=== PATIENT | female | born 1995 | race American Indian/Alaskan Native ===

== ENCOUNTER 2016-09-25 15:33 | Emergency (ER) | payer OTHER ==
[2016-09-25] MEDS ORDERED: XYLOCAINE 1%/ EPI 1:100,000 INFILTRATI ONE (18:39)
[2016-09-25] MEDS ORDERED: NORCO 5/325 PO ONE (18:40)
--- NOTE | 2016-09-25 19:28 | Emergency Department Report ---
Entered by TAYLOR MONTANEZ, acting as scribe for DAMAIN MAC PA. - General Chief complaint: Skin/Abscess/Foreign Body Stated complaint: BUTTOCKS PAIN Source: patient Mode of arrival: Ambulatory Limitations: No Limitations - History of Present Illness Initial comments: 21 year old female presents to the ED c/o an abscess on the left inner buttocks that began 5 days ago. Associated symptoms includes radiating pain to her left leg and lower back, but she denies drainage, fever, and chills. Rates pain a 10 out of 10 in severity, which worsens with walking and sitting. Pt states that she took Meloxicam with mild relief. PMHx of childhood asthma. LMP 09/23/2016. NKDA. WHITTAKER complaint: abscess/boil (left side of inner buttock) Onset/Timin -: days(s) Tetanus Up to Date: yes Location: buttocks (left side of inner buttock) Severity: moderate Severity scale (0 -10): 10 Quality: aching, constant Consistency: constant Improves with: immobilization, other (Meloxican with mild relief) Worsens with: palpation, movement (walking and sitting) Associated symptoms: other (pain radiating to left leg and lower back, denies drainage, fever, and chills) - Related Data Previous Rx's Medication Instructions Recorded Last Taken Type HYDROcodone/APAP 5-325 [[place] 1 each PO Q4HR PRN #12 tablet 09/25/16 Unknown Rx 5/325] Sulfamethoxazole/Trimethoprim 1 each PO BID #20 tablet 09/25/16 Unknown Rx [Bactrim DS TAB] Allergies Allergy/AdvReac Type Severity Reaction Status Date / Time No Known Allergies Allergy Unverified 09/25/16 16:48 Abscess Boil HPI - HPI Chief Complaint: Skin/Abscess/Foreign Body Stated Complaint: BUTTOCKS PAIN Duration: 5 Days Location: Lower Extremity (left inner buttock) Severity: Moderate History: Yes Pain (left inner buttock that radiates to left leg and lower back) , No Fever, No Purulent Drainage (left inner buttock), No Numbness, No Foreign Body, No Previous History, No Insect Bite Home Medications: Previous Rx's Medication Instructions Recorded Last Taken Type HYDROcodone/APAP 5-325 [[place] 1 each PO Q4HR PRN #12 tablet 09/25/16 Unknown Rx 5/325] Sulfamethoxazole/Trimethoprim 1 each PO BID #20 tablet 09/25/16 Unknown Rx [Bactrim DS TAB] Allergies/Adverse Reactions: Allergies Allergy/AdvReac Type Severity Reaction Status Date / Time No Known Allergies Allergy Unverified 09/25/16 16:48 ED Review of Systems Comment: All other systems reviewed and negative Constitutional: denies: chills, fever Musculoskeletal: other (left inner buttock pain that radiates to the left leg and lower back) Skin: other (abscess in the left inner buttock, no abscess drainage) ED Past Medical Hx - Past Medical History Hx Asthma: Yes (CHILD) - Surgical History Past Surgical History?: No - Social History Smoking Status: Never Smoker Substance Use Type: None - Medications Home Medications: Home Medications Medication Instructions Recorded Confirmed Last Taken Type HYDROcodone/APAP 5-325 [[place] 1 each PO Q4HR PRN #12 tablet 09/25/16 Unknown Rx 5/325] Sulfamethoxazole/Trimethoprim 1 each PO BID #20 tablet 09/25/16 Unknown Rx [Bactrim DS TAB] ED Physical Exam - General Limitations: No Limitations General appearance: alert, in no apparent distress - Head Head exam: Present: atraumatic, normocephalic - Eye Eye exam: Present: normal appearance, PERRL, EOMI - ENT ENT exam: Present: mucous membranes moist - Neck Neck exam: Present: normal inspection, full ROM - Respiratory Respiratory exam: Present: normal lung sounds bilaterally. Absent: respiratory distress - Cardiovascular Cardiovascular Exam: Present: regular rate - GI/Abdominal GI/Abdominal exam: Present: soft, normal bowel sounds. Absent: distended, tenderness, guarding, rebound, rigid - Rectal Rectal exam: Present: tenderness (around the area of abscess on left inner buttock), other (abscess present on inner buttock) - Extremities Exam Extremities exam: Present: normal inspection, full ROM - Back Exam Back exam: Present: normal inspection, full ROM - Neurological Exam Neurological exam: Present: alert, oriented X3 - Psychiatric Psychiatric exam: Present: normal affect, normal mood - Skin Skin exam: Present: warm, dry, intact, other (abscess present on the inner buttock). Absent: pallor ED Course Vital Signs 09/25/16 16:49 Temperature 98.9 F Pulse Rate 100 H Respiratory 20 Rate Blood Pressure 139/87 O2 Sat by Pulse 100 Oximetry - I & D Left Upper Buttocks Type of Procedure: Simple Site: left inner buttock Blade Size: 11 I & D Procedure: betadine prep, sterile drapes applied, sterile dressing applied , gauze wick placed ED Disposition Clinical Impression: Pilonidal abscess Disposition: DISCHARGED TO HOME OR SELFCARE Is pt being admited?: No Condition: Stable Instructions: Abscess Incision and Drainage (ED) Prescriptions: HYDROcodone/APAP 5-325 [[place] 5/325] 1 each PO Q4HR PRN #12 tablet PRN Reason: Pain Sulfamethoxazole/Trimethoprim [Bactrim DS TAB] 1 each PO BID #20 tablet Referrals: PRIMARY CARE,MD [Primary Care Provider] - 3-5 Days Forms: Work/School Release Form(ED) This documentation as recorded by the TARIK howell JASMINE,accurately reflects the service I personally performed and the decisions made by ,DAMIAN MAC PA.
[2016-09-25 20:00] VITALS: BP 117/81
== END 2016-09-25 19:59 | disposition home or self-care (01) ==
LOC: ED 15:33
DX: L05.01 Pilonidal cyst with abscess (principal)
CPT/HCPCS: 87116; 99282

== ENCOUNTER 2016-09-27 16:11 | Emergency (ER) | payer OTHER ==
--- NOTE | 2016-09-27 19:50 | Emergency Department Report ---
ED Recheck HPI - General Chief Complaint: Recheck/Abnormal Lab/Rx Stated Complaint: FOLLOW UP/REMOVE PACKING/ABSCESS Time Seen by Provider: 09/27/16 19:35 Source: patient, family Mode of arrival: Ambulatory Limitations: No Limitations - History of Present Illness Initial Comments: Patient was here on 09/25/2016 for incision and drainage of abscess to left buttocks. She says she was told to come back in 2 days for reevaluation. Her vital told her to follow up with her primary care physician in 3-5 days per documentation. OPT Received Bactrim and [place] and she says she is still taking. Her abscess was drain and pack in place. She reports that she is having pain 5 out of 10 when she sits down. Denies any fever or chills or nausea or vomiting. MD Complaint: wound re-check Onset/Timin -: days(s) Initial Visit For: abscess Returns Today for: wound recheck Symptoms Since Prior Visit: worsening discharge Context: planned re-check Associated Symptoms: none Treatments Prior to Arrival: heat therapy, Given Antibiotics on, Given Pain Meds on - Related Data Previous Rx's Medication Instructions Recorded Last Taken Type HYDROcodone/APAP 5-325 [[place] 1 each PO Q4HR PRN #12 tablet 09/25/16 Unknown Rx 5/325] Sulfamethoxazole/Trimethoprim 1 each PO BID #20 tablet 09/25/16 Unknown Rx [Bactrim DS TAB] Ibuprofen [Motrin] 600 mg PO Q8H PRN #15 tablet 09/27/16 Unknown Rx Allergies Allergy/AdvReac Type Severity Reaction Status Date / Time No Known Allergies Allergy Verified 09/27/16 16:35 ED Review of Systems ROS: Stated complaint: FOLLOW UP/REMOVE PACKING/ABSCESS Other details as noted in HPI Comment: All other systems reviewed and negative Constitutional: denies: chills, fever Respiratory: no symptoms reported Cardiovascular: denies: chest pain, palpitations, edema, syncope Gastrointestinal: denies: abdominal pain, nausea, vomiting Skin: other (recheck abscess buttocks) Neurological: denies: headache, weakness, numbness, paresthesias, confusion, abnormal gait, vertigo ED Past Medical Hx - Past Medical History Previous Medical History?: Yes Hx Asthma: Yes (CHILD) Additional medical history: Abscess - Surgical History Past Surgical History?: No - Family History Family history: no significant - Social History Smoking Status: Never Smoker Substance Use Type: Alcohol - Medications Home Medications: Home Medications Medication Instructions Recorded Confirmed Last Taken Type HYDROcodone/APAP 5-325 [[place] 1 each PO Q4HR PRN #12 tablet 09/25/16 Unknown Rx 5/325] Sulfamethoxazole/Trimethoprim 1 each PO BID #20 tablet 09/25/16 Unknown Rx [Bactrim DS TAB] Ibuprofen [Motrin] 600 mg PO Q8H PRN #15 tablet 09/27/16 Unknown Rx ED Physical Exam - General Limitations: No Limitations General appearance: alert, in no apparent distress - Head Head exam: Present: atraumatic, normocephalic, normal inspection - Eye Eye exam: Present: normal appearance, PERRL, EOMI. Absent: periorbital swelling , periorbital tenderness Pupils: Present: normal accommodation - Neck Neck exam: Present: normal inspection, full ROM. Absent: tenderness, lymphadenopathy - Respiratory Respiratory exam: Present: normal lung sounds bilaterally. Absent: respiratory distress, chest wall tenderness - Cardiovascular Cardiovascular Exam: Present: regular rate, normal rhythm, normal heart sounds - Extremities Exam Extremities exam: Present: normal inspection, full ROM, normal capillary refill. Absent: tenderness, pedal edema, joint swelling, calf tenderness - Back Exam Back exam: Present: normal inspection, full ROM. Absent: tenderness, CVA tenderness (R), CVA tenderness (L), muscle spasm, paraspinal tenderness, vertebral tenderness, rash noted - Neurological Exam Neurological exam: Present: alert, oriented X3, normal gait - Psychiatric Psychiatric exam: Present: normal affect, normal mood - Skin Skin exam: Present: warm, dry, other (left buttocks abscess with packing still in place.) - Expanded Skin Exam Expanded Type of lesion: Present: abscess (with packing still in place left buttocks) Distribution of rash: other (buttocks) Description of rash: Present: tenderness, erythematous, swelling, discharge ( moderate amount of discharge from area and noted in packing), fluctuant, indurated (still some areas of induration.) ED Course Vital Signs 09/27/16 16:35 Temperature 98.4 F Pulse Rate 84 Respiratory 20 Rate Blood Pressure 115/78 O2 Sat by Pulse 100 Oximetry - Reevaluation(s) Reevaluation #1: 09/27/16 20:34 She is stable throughout ED course ED Recheck MDM - Differential Diagnosis Wound Recheck - Medical Decision Making I discussed the patient that facility to remove the packing due to moderate amount of drainage and I told her that if the packing is removed now in the patient will close up and she still has an area that needs not. I instructed her she needs to apply warm compresses to the area and take sitz baths 3-4 times a day to facilitate drainage. I instructed her that she needs to continue taking her antibiotic as prescribed and also pain medication. Patient is stable she's not having any fever and she is able to tolerate liquids without any problems.She can return to the hospital on Thursday if she she follows instructions with warm compresses and she probably will be ready for packing to be removed. Patient was understanding of discharge instructions and follow-up. Critical care attestation.: If time is entered above; I have spent that time in minutes in the direct care of this critically ill patient, excluding procedure time. ED Disposition Clinical Impression: Encounter for recheck of abscess following incision and drainage Disposition: DISCHARGED TO HOME OR SELFCARE Is pt being admited?: No Does the pt Need Aspirin: No Condition: Stable Instructions: Abscess Incision and Drainage (ED) Additional Instructions: Please continue to take Bactrim as prescribed. Please increase fluid intake. keep affected area clean and dry return on Thursday for reevaluation of abscess and possible removal of packing. Apply warm compresses to the area 3-4 times a day to include sitz bath. Prescriptions: Ibuprofen [Motrin] 600 mg PO Q8H PRN #15 tablet PRN Reason: Pain Referrals: PRIMARY CARE, [Primary Care Provider] - 3-5 Days Forms: Accompanied Note, Work/School Release Form(ED)
[2016-09-27] MEDS ORDERED: TORADOL IM ONE (21:25)
[2016-09-27 21:44] VITALS: BP 120/82
[2016-09-27] MEDS ORDERED: TORADOL ONE (21:47)
== END 2016-09-27 21:45 | disposition home or self-care (01) ==
LOC: ED 16:11
DX: L02.31 Cutaneous abscess of buttock (principal); Z48.01 Encounter for change or removal of surgical wound dressing; J45.909 Unspecified asthma, uncomplicated
CPT/HCPCS: 96372; 99282; J1885

== ENCOUNTER 2016-09-29 12:45 | Emergency (ER) | payer OTHER ==
[2016-09-29 12:58] VITALS: BP 120/78
--- NOTE | 2016-09-30 12:10 | Emergency Department Report ---
Entered by TAYLOR MOTNANEZ, acting as scribe for KAT GOEL NP. ED Recheck HPI - General Chief Complaint: Skin/Abscess/Foreign Body Stated Complaint: SUTURE REMOVAL Time Seen by Provider: 09/29/16 13:43 Source: patient Mode of arrival: Ambulatory Limitations: No Limitations - History of Present Illness Initial Comments: 21 year old female presents to the ED for a recheck of an abscess on her left inner buttock that was drained four days ago in this ED. Patient states that she still experiences pain, which she currently rates a 7 out of 10 in severity. The pain worsens with movement, walking, and sitting. Denies erythema , swelling, pus/purulent drainage. Patient is currently compliant with her antibiotic medication. NKDA. WHITTAKER Complaint: other (left inner buttock abscess re-check) Onset/Timin -: days(s) Initial Visit For: abscess (left inner buttock) Returns Today for: other (left inner buttock abscess re-check) Symptoms Since Prior Visit: improved (minimal, limited walking and sitting due to pain) Context: planned re-check Associated Symptoms: other (left buttocks pain, but denies erythema, swelling, pus, and purulent drainage). denies: fever, chills Treatments Prior to Arrival: dressings - Related Data Previous Rx's Medication Instructions Recorded Last Taken Type HYDROcodone/APAP 5-325 [[place] 1 each PO Q4HR PRN #12 tablet 09/25/16 Unknown Rx 5/325] Sulfamethoxazole/Trimethoprim 1 each PO BID #20 tablet 09/25/16 Unknown Rx [Bactrim DS TAB] Ibuprofen [Motrin] 600 mg PO Q8H PRN #15 tablet 09/27/16 Unknown Rx Allergies Allergy/AdvReac Type Severity Reaction Status Date / Time No Known Allergies Allergy Verified 09/27/16 16:35 ED Review of Systems Comment: All other systems reviewed and negative Constitutional: denies: chills, fever, other (swelling around abscess on left inner buttock) ENT: denies: ear pain, throat pain Respiratory: denies: cough, shortness of breath, wheezing Cardiovascular: denies: chest pain, palpitations Gastrointestinal: other (left inner buttock pain) Musculoskeletal: denies: back pain, joint swelling, arthralgia Skin: other (abscess on left inner buttock, but denies purulent drainage) Neurological: denies: headache, weakness, paresthesias Psychiatric: denies: anxiety, depression ED Past Medical Hx - Past Medical History Hx Asthma: Yes (CHILD) Additional medical history: Abscess - Social History Smoking Status: Never Smoker Substance Use Type: None - Medications Home Medications: Home Medications Medication Instructions Recorded Confirmed Last Taken Type HYDROcodone/APAP 5-325 [[place] 1 each PO Q4HR PRN #12 tablet 09/25/16 Unknown Rx 5/325] Sulfamethoxazole/Trimethoprim 1 each PO BID #20 tablet 09/25/16 Unknown Rx [Bactrim DS TAB] Ibuprofen [Motrin] 600 mg PO Q8H PRN #15 tablet 09/27/16 Unknown Rx ED Physical Exam - General Limitations: No Limitations General appearance: alert, in no apparent distress - Head Head exam: Present: atraumatic, normocephalic - Eye Eye exam: Present: normal appearance, EOMI - ENT ENT exam: Present: normal exam, mucous membranes moist - Neck Neck exam: Present: normal inspection, full ROM - Respiratory Respiratory exam: Present: normal lung sounds bilaterally. Absent: respiratory distress - Cardiovascular Cardiovascular Exam: Present: regular rate, normal rhythm - GI/Abdominal GI/Abdominal exam: Present: soft. Absent: distended, tenderness, guarding, rebound - Rectal Rectal exam: Present: tenderness (area around abscess on left inner buttock), other (2 cm abscess present on left inner buttock) - Extremities Exam Extremities exam: Present: normal inspection, full ROM - Expanded Lower Extremity Exam Left Gait: Positive: observed and limited by pain - Back Exam Back exam: Present: normal inspection, full ROM - Neurological Exam Neurological exam: Present: alert, oriented X3 - Psychiatric Psychiatric exam: Present: normal affect, normal mood - Skin Skin exam: Present: warm, dry, intact, other (2 cm abscess present on left inner buttock, but denies pus/purulent drainage, and swelling). Absent: erythema ED Course Vital Signs 09/29/16 12:55 Temperature 98.2 F Pulse Rate 74 Respiratory 18 Rate Blood Pressure 120/78 O2 Sat by Pulse 100 Oximetry ED Recheck MDM - Medical Decision Making Ed course: This 21-year-old female that presents with a 2 cm abscess in inner buttock area. She is here for evaluation of the abscess. 1- I irrigated with normal saline to the wound area. Patient tolerated well. No signs of any erythema, swelling, or purulent drainage. 2- I put a sterile dressing with tape. 3- instructed patient to keep area clean and dry. Also instructed patient to use antibacterial soap to the affected area. Keep area clean and dry. 4- instructed patient to finish antibiotics course. 5- at this time the patient is not toxic in appearance or any signs of distress. 6- patient tolerated procedure well with no signs of complication noted. 7- Patient stated has left over "pain medication" and does not need any refills for her pain medications. ED Disposition Clinical Impression: Abscess re-check Disposition: DISCHARGED TO HOME OR SELFCARE Is pt being admited?: No Does the pt Need Aspirin: No Condition: Stable Instructions: Abscess (ED) Additional Instructions: Please follow up with her primary care doctor in 3-5 days. Please keep area clean and dry. Use antibacterial soap in affected area. If symptoms such as swelling, redness, pus, fever or chills noted as were bands emergency room. Please continue taking antibiotic medication as prescribed. Referrals: PRIMARY CARE, [Primary Care Provider] - 3-5 Days [facility] [Outside] - 3-[address] [facility] [place] [Outside] - 3-5 Days Forms: Work/School Release Form(ED) This documentation as recorded by the TARIK howell JASMINE,accurately reflects the service I personally performed and the decisions made by ,KAT GOEL, AMEE.
== END 2016-09-29 15:14 | disposition home or self-care (01) ==
LOC: ED 12:45
DX: Z48.817 Encounter for surgical aftercare following surgery on the skin and subcutaneous tissue (principal); L02.31 Cutaneous abscess of buttock
CPT/HCPCS: 99282

== ENCOUNTER 2017-02-19 18:22 | Emergency (ER) | payer OTHER ==
[2017-02-19 19:46] VITALS: BP 127/81
[2017-02-19 19:49] LABS: Basophils % (Auto) 1.3 % (0.0-1.8); Eosinophils % (Auto) 2.9 % (0.0-4.3); Hematocrit 34.7 % (30.3-42.9); Hemoglobin 11.4 gm/dl (10.1-14.3); Mean Corpuscular HGB Conc 33 % (30-34); Mean Corpuscular Hemoglobin 30 pg (28-32); Mean Corpuscular Volume 89 fl (79-97); Platelet Count 292 K/mm3 (140-440); Red Blood Count 3.88 M/mm3 (3.65-5.03); Red Cell Distribution Width 12.9 % (13.2-15.2)
[2017-02-19 20:09] LABS: Anion Gap 18 mmol/L; BUN/Creatinine Ratio 17.14; Blood Urea Nitrogen 12 mg/dL (7-17); Calcium 8.9 mg/dL (8.4-10.2); Carbon Dioxide 22 mmol/L (22-30); Chloride 102.9 mmol/L (98-107); Glucose 93 mg/dL (65-100); Potassium 4.5 mmol/L (3.6-5.0); Sodium 138 mmol/L (137-145)
[2017-02-19] MEDS ORDERED: MOTRIN PO ONE (21:27)
--- NOTE | 2017-02-19 21:27 | XRay Report ---
FINAL REPORT PROCEDURE: XR KNEE BILAT 3V TECHNIQUE: Three views of the bilateral knees are obtained HISTORY: bilateral knee Pain COMPARISON: No prior studies are available for comparison. FINDINGS: There is no fracture or dislocation. No arthritic changes are seen. There is no joint effusion. IMPRESSION: No abnormalities are seen.
--- NOTE | 2017-02-20 00:48 | Emergency Department Report ---
Entered by TAYLOR MONTANEZ, acting as scribe for KAT GOEL NP. ED Extremity Problem HPI - General Chief complaint: Extremity Injury, Lower Stated complaint: BILAT KNEE/FOOT PAIN Time Seen by Provider: 02/19/17 20:33 Source: patient Mode of arrival: Ambulatory Limitations: No Limitations - History of Present Illness Initial comments: This is a 21 y/o female, nontoxic, well nourished in appearance, no acute signs of distress with a PMHx of asthma and obesity presents to the ED c/o chronic bilateral knee pain with recurrent onset of 2 weeks ago. Rates pain an 8/10 in severity, which she describes as stabbing and aching in quality. Aggravated with walking, movement, and weight bearing, and alleviated with immobilization. Associated symptom includes bilateral foot pain x 1 week exacerbated with walking, but she denies any bilateral knee/foot injury/trauma, numbness, tingling, fever, chills, chest pain, SOB, SOLORZANO, and dizziness. 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 Took Ibuprofen 600 mg with minimal relief. NKDA. WHITTAKER Complaint: extremity pain Onset/Timin -: week(s) Location: left, right, knee History of Same: No -: No myalgia, Yes arthralgia (bilateral knee pain), No fever, No associated dyspnea, No associated chest pain Radiation: none Severity scale (0 -10): 8 Quality: stabbing, aching Consistency: intermittent Improves with: nothing Worsens with: weight bearing, walking, other (movement) Associated Symptoms: denies other symptoms, arthralgias (bilateral knee pain). denies: chest pain, shortness of breath, fever, myalgias, rash, other - Related Data Previous Rx's Medication Instructions Recorded Last Taken Type HYDROcodone/APAP 5-325 [[place] 1 each PO Q4HR PRN #12 tablet 09/25/16 Unknown Rx 5/325] Sulfamethoxazole/Trimethoprim 1 each PO BID #20 tablet 09/25/16 Unknown Rx [Bactrim DS TAB] Ibuprofen [Motrin] 600 mg PO Q8H PRN #15 tablet 09/27/16 Unknown Rx Ibuprofen [Motrin 600 MG tab] 600 mg PO Q8H PRN #30 tablet 02/19/17 Unknown Rx Allergies Allergy/AdvReac Type Severity Reaction Status Date / Time No Known Allergies Allergy Verified 09/27/16 16:35 ED Review of Systems Comment: All other systems reviewed and negative Constitutional: denies: chills, fever Eyes: denies: eye pain, eye discharge, vision change ENT: denies: ear pain, throat pain Respiratory: denies: cough, orthopnea, shortness of breath, SOB with exertion, SOB at rest, stridor, wheezing Cardiovascular: denies: chest pain, palpitations, dyspnea on exertion, orthopnea , edema, syncope, paroxysmal nocturnal dyspnea Endocrine: no symptoms reported Gastrointestinal: denies: abdominal pain, nausea, vomiting, diarrhea Genitourinary: denies: urgency, dysuria, discharge Musculoskeletal: arthralgia (bilateral knee and foot pain). denies: back pain, joint swelling, myalgia Skin: denies: rash, lesions Neurological: denies: headache, weakness, numbness, paresthesias, confusion, abnormal gait, vertigo Psychiatric: denies: anxiety, depression Hematological/Lymphatic: denies: easy bleeding, easy bruising ED Past Medical Hx - Past Medical History Previous Medical History?: Yes Hx Asthma: Yes (CHILD) Additional medical history: Abscess. Obesity - Surgical History Past Surgical History?: No - Family History Family history: no significant - Social History Smoking Status: Never Smoker Substance Use Type: Alcohol - Medications Home Medications: Home Medications Medication Instructions Recorded Confirmed Last Taken Type HYDROcodone/APAP 5-325 [[place] 1 each PO Q4HR PRN #12 tablet 09/25/16 Unknown Rx 5/325] Sulfamethoxazole/Trimethoprim 1 each PO BID #20 tablet 09/25/16 Unknown Rx [Bactrim DS TAB] Ibuprofen [Motrin] 600 mg PO Q8H PRN #15 tablet 09/27/16 Unknown Rx Ibuprofen [Motrin 600 MG tab] 600 mg PO Q8H PRN #30 tablet 02/19/17 Unknown Rx ED Physical Exam - General Limitations: No Limitations General appearance: alert, in no apparent distress - Head Head exam: Present: atraumatic, normocephalic - Eye Eye exam: Present: normal appearance, PERRL, EOMI. Absent: scleral icterus, conjunctival injection, nystagmus, periorbital swelling, periorbital tenderness Pupils: Present: normal accommodation - ENT ENT exam: Present: normal exam, normal orophraynx, mucous membranes moist, TM's normal bilaterally, normal external ear exam - Neck Neck exam: Present: normal inspection, full ROM. Absent: tenderness, meningismus, lymphadenopathy, thyromegaly - Respiratory Respiratory exam: Present: normal lung sounds bilaterally. Absent: respiratory distress, wheezes, rales, rhonchi, stridor, chest wall tenderness, accessory muscle use, decreased breath sounds, prolonged expiratory - Cardiovascular Cardiovascular Exam: Present: regular rate, normal rhythm, normal heart sounds. Absent: systolic murmur, diastolic murmur, rubs, gallop - GI/Abdominal GI/Abdominal exam: Present: soft, normal bowel sounds. Absent: distended, tenderness, guarding, rebound, rigid - Rectal Rectal exam: Present: deferred - Extremities Exam Extremities exam: Present: full ROM, tenderness (plantar aspect of foot bilaterally), normal capillary refill. Absent: normal inspection, pedal edema, joint swelling, calf tenderness - Expanded Lower Extremity Exam Left Hip exam: Present: normal inspection (bilaterally), full ROM, external rotation , internal rotation, pelvic stability. Absent: tenderness, swelling, abrasion, laceration, ecchymosis, deformity, crepidus, dislocation, erythema, shortening Upper Leg exam: Present: normal inspection (bilaterally), full ROM. Absent: tenderness, swelling, abrasion, laceration, ecchymosis, deformity, crepidus, dislocation, erythema Knee exam: Present: normal inspection (bilaterally), full ROM, full knee extension. Absent: tenderness, swelling, abrasion, laceration, ecchymosis, deformity, crepidus, dislocation, erythema, effusion, pain w/ pronation/ supination, posterior draw sign, pain/laxity with valgus, pain/laxity with varus Lower Leg exam: Present: normal inspection (bilaterally), full ROM. Absent: tenderness, swelling, abrasion, laceration, ecchymosis, deformity, crepidus, dislocation, erythema, palpable cord, Gretta's sign Ankle exam: Present: normal inspection (bilaterally), full ROM. Absent: tenderness, swelling, abrasion, laceration, ecchymosis, deformity, crepidus, dislocation, erythema, anterior draw sign Foot/Toe exam: Present: full ROM, tenderness (plantar aspect of foot bilaterally ). Absent: normal inspection, swelling, abrasion, laceration, ecchymosis, deformity, crepidus, dislocation, erythema, amputation, puncture wound, foreign body, calcaneal tenderness, tenderness at base of 5th metatarsal, nail avulsion , subungual hematoma Neuro vascular tendon exam: Present: no vascular compromise (bilaterally). Absent: pulse deficit, abnormal cap refill, motor deficit, sensory deficit, tendon deficit, extremity cold to touch, pallor, abnormal 2-point discrimination , decreased fine/light touch, foot drop, peroneal nerve deficit, significant pain with passive ROM of distal joint Gait: Positive: observed and normal - Back Exam Back exam: Present: normal inspection, full ROM. Absent: tenderness, CVA tenderness (R), CVA tenderness (L), muscle spasm, paraspinal tenderness, vertebral tenderness, rash noted - Neurological Exam Neurological exam: Present: alert, oriented X3, CN II-XII intact, normal gait, reflexes normal. Absent: motor sensory deficit - Psychiatric Psychiatric exam: Present: normal affect, normal mood - Skin Skin exam: Present: warm, dry, intact. Absent: rash ED Course Vital Signs 02/19/17 02/19/17 19:20 20:50 Temperature 97.9 F Pulse Rate 78 Respiratory 18 17 Rate Blood Pressure 127/81 O2 Sat by Pulse 99 99 Oximetry - Reevaluation(s) Reevaluation #1: 02/19/17 21:25 Patient is speaking in full sentences with no signs of distress noted. ED Medical Decision Making - Lab Data Result diagrams: 02/19/17 19:40 02/19/17 19:39 - Medical Decision Making 21 year-old female that presents with chio chronic knee pain with chio plantar fasciitis. Patient is stable. Patient was examined by myself. X-rays obtained bilateral knees with negative findings of any abnormalities. Dictated by radiologist. Patient was notified x-ray results with no further questions noted by patient. Patient was instructed to rest, elevate and ice extremities. Patient also was instructed to buy [id number] any pharmacy store a plantar fasciitis roller. Patient received ibuprofen 600 mg by mouth at time of discharge as well as in the ED. patient was instructed to follow up with a primary care doctor/orthopedic doctor in 3-5 days or symptoms such as numbness, tingling, or any abnormal symptoms return to emergency room as soon as possible. At time time of discharge, the patient does not seem toxic or ill in appearance. No acute signs of distress noted. Patient agrees to discharge treatment plan of care. No further questions noted by the patient. ED Disposition Clinical Impression: Plantar fasciitis Bilateral knee pain Qualifiers: Chronicity: chronic Qualified Code(s): M25.561 - Pain in right knee; M25.562 - Pain in left knee; G89.29 - Other chronic pain Arthralgia Qualifiers: Joint pain location: unspecified Qualified Code(s): M25.50 - Pain in unspecified joint Disposition: DC- TO HOME OR SELFCARE Is pt being admited?: No Does the pt Need Aspirin: No Condition: Stable Instructions: Arthralgia (ED), Knee Pain (ED), Plantar Fasciitis (ED), Ibuprofen (By mouth), RICE Therapy (ED) Additional Instructions: follow up with a primary care doctor/orthopedic doctor in 3-5 days or symptoms such as numbness, tingling, or any abnormal symptoms return to emergency room as soon as possible. Rest, elevate, and ice extremity Prescriptions: Ibuprofen [Motrin 600 MG tab] 600 mg PO Q8H PRN #30 tablet PRN Reason: Pain Referrals: PRIMARY CARE,MD [Primary Care Provider] - 3-5 Days JV HEADLEY MD [Staff Physician] - 3-5 Days BARRY NUNEZ MD [Staff Physician] - 3-5 Days [facility] [Outside] - 3-5 Days [facility] [place] [Outside] - 3-5 Days Forms: Work/School Release Form(ED) This documentation as recorded by the TARIK howell JASMINE,accurately reflects the service I personally performed and the decisions made by ,KAT GOEL, AMEE.
== END 2017-02-19 22:16 | disposition home or self-care (01) ==
LOC: ED 18:22
DX: M72.2 Plantar fascial fibromatosis (principal); M25.561 Pain in right knee; M25.562 Pain in left knee; J45.909 Unspecified asthma, uncomplicated
CPT/HCPCS: 36415; 80048; 84703; 85025; 99284

== ENCOUNTER 2017-05-27 08:01 | Emergency (ER) | payer SELFPAY ==
[2017-05-27 08:22] VITALS: BP 137/71
--- NOTE | 2017-05-27 08:41 | XRay Report ---
RIGHT ANKLE, 3 views: History: right ankle pain. Bone mineralization is normal. No acute osseous abnormality or joint pathology is identified. The soft tissues are unremarkable. IMPRESSION: Normal study.
[2017-05-27] MEDS ORDERED: AUGMENTIN 875 MG PO ONE (09:31)
[2017-05-27] MEDS ORDERED: MOTRIN PO ONE (09:33)
[2017-05-27] MEDS ORDERED: FLEXERIL PO ONE (09:34)
--- NOTE | 2017-05-27 09:34 | Emergency Department Report ---
HPI - General Chief Complaint: Extremity Injury, Lower Time Seen by Provider: 05/27/17 09:27 - HPI HPI: Patient is a 22-year-old female presents to ED complaining of right ankle pain 2 days. Patient states she was walking downstairs yesterday when she missed a step and twisted her right ankle on 1 step. She states she had pain in the right ankle for the past 2 days. Patient states throbbing in nature and localized to the ankle. Patient denies any loss of sensation or inability to walk. Patient states pain with mild pressure to the foot. She also states that for the past 2 days she is still some pain and a small mass on the left upper buttock where she got an incision and drainage months ago. Patient states she feels like the abscess might be coming back. Patient states she has not seen any drainage, increased swelling. She states that immediately hurts when she touches the patient's basic hardened. Patient denies any fever/chills/nausea/vomiting/abdominal pain/chest pain shortness of breath or any other problems. ED Past Medical Hx - Past Medical History Previous Medical History?: Yes Hx Asthma: Yes (CHILD) Additional medical history: Abscess. Obesity - Surgical History Past Surgical History?: No - Social History Smoking Status: Never Smoker Substance Use Type: Alcohol, Non Opiate Pain - Medications Home Medications: Home Medications Medication Instructions Recorded Confirmed Last Taken Type HYDROcodone/APAP 5-325 [[place] 1 each PO Q4HR PRN #12 tablet 09/25/16 Unknown Rx 5/325] Ibuprofen [Motrin] 600 mg PO Q8H PRN #15 tablet 09/27/16 Unknown Rx Ibuprofen [Motrin 600 MG tab] 600 mg PO Q8H PRN #30 tablet 02/19/17 Unknown Rx Cyclobenzaprine [Flexeril 10 MG 10 mg PO QHS #20 tablet 05/27/17 Unknown Rx TAB] Ibuprofen [Motrin 800 MG tab] 800 mg PO QHS #30 tablet 05/27/17 Unknown Rx Sulfamethoxazole/Trimethoprim 1 each PO BID #14 tablet 05/27/17 Unknown Rx [Bactrim DS TAB] ED Review of Systems ROS: Stated complaint: FALL, RIGHT ANKLE INJURY, ABSCESS ON BUTTOCK Other details as noted in HPI Constitutional: denies: chills, fever Eyes: denies: eye pain, eye discharge, vision change ENT: denies: ear pain, throat pain Respiratory: denies: cough, shortness of breath, wheezing Cardiovascular: denies: chest pain, palpitations Endocrine: no symptoms reported Gastrointestinal: denies: abdominal pain, nausea, diarrhea Genitourinary: denies: urgency, dysuria, discharge Musculoskeletal: arthralgia. denies: back pain, joint swelling Skin: denies: rash, lesions Neurological: denies: headache, weakness, paresthesias Psychiatric: denies: anxiety, depression Hematological/Lymphatic: denies: easy bleeding, easy bruising Physical Exam - Physical Exam Vital Signs: Vital Signs 05/27/17 08:19 Temperature 98.3 F Pulse Rate 100 H Respiratory 18 Rate Blood Pressure 137/71 O2 Sat by Pulse 99 Oximetry Physical Exam: GENERAL: Alert and oriented x3, no apparent distress, Normal Gait, atraumatic. HEAD: Head is normocephalic and a-traumatic. NECK: Supple. Non edematous, No carotid bruits. No lymphadenopathy or thyromegaly. No C-spine tenderness LUNGS: Symetrical with respiration, No wheezing, no rales or crackles, CTAB. HEART: S1, S2 present, regular rate and rhythm without murmur, no rubs, no gallops. Non tender to palpation EXTREMITIES/MUSCULOSKELETAL: No cyanosis, clubbing, rash, lesions or edema in all extremities. Full ROM bilaterally all extremities. UE/LE Pulses 2+ bilaterally. LE 5+ strength bilaterally, right ankle mildly swollen, tender to palpation, and non-erythematous, full range of motion of the ankle. NEUROLOGIC: The patient is cooperative with no focal neurologic deficits. SKIN: Warm and dry, No lesions, No ulceration or induration present. ED Course Vital Signs 05/27/17 08:19 Temperature 98.3 F Pulse Rate 100 H Respiratory 18 Rate Blood Pressure 137/71 O2 Sat by Pulse 99 Oximetry ED Medical Decision Making - Radiology Data Radiology results: report reviewed, image reviewed Ordering Physician: DARLING PUCKETT MD Date of Service: 05/27/17 Procedure(s): XR ankle 3+V RT Accession Number(s): [id number] cc: DARLING PUCKETT MD Fluoro Time In Minutes: RIGHT ANKLE, 3 views: History: right ankle pain. Bone mineralization is normal. No acute osseous abnormality or joint pathology is identified. The soft tissues are unremarkable. IMPRESSION: Normal study. Transcribed By: TTR Dictated By: THONY COLLINS JR, MD Electronically Authenticated By: THONY COLLINS JR, MD Signed Date/Time: 05/27/17 0836 - Medical Decision Making 22-year-old female presents with ankle sprain ED course: Patient received Motrin and Flexeril and ED. X-rays of the ankle shows no acute fracture or dislocation. Discussed the patient was sent home on pain medication and instructions. Discussed the patient and she was sent home on antibiotic trial for small recurrent left buttock mass for prophylaxis of the abscess. I discussed the patient at this time there is no abscess around the buttock. I discussed tenderness to the scarring from prior incision and drainage or early stages of abscess. I discussed the patient to apply heat therapy and take antibiotics as given. Patient states she understands that she shows given. I discussed with patient that this will make her drowsy and to not take while operating machinery. Vital signs are normal patient has no acute distress she understands instructions given she has no neuro deficits. Critical care attestation.: If time is entered above; I have spent that time in minutes in the direct care of this critically ill patient, excluding procedure time. ED Disposition Clinical Impression: Ankle sprain Qualifiers: Encounter type: initial encounter Involved ligament of ankle: other ligament Laterality: right Qualified Code(s): S93.491A - Sprain of other ligament of right ankle, initial encounter Disposition: - TO HOME OR SELFCARE Is pt being admited?: No Does the pt Need Aspirin: No Condition: Stable Instructions: Ankle Sprain (ED), Ankle Stirrup Splint (ED), Ankle Exercises ( GEN) Additional Instructions: Make sure to follow up with the primary care physician as discussed. Take all your medications as you've been prescribed. If you have any worsening symptoms or develop new symptoms please return to ED immediately. Prescriptions: Cyclobenzaprine [Flexeril 10 MG TAB] 10 mg PO QHS #20 tablet Ibuprofen [Motrin 800 MG tab] 800 mg PO QHS #30 tablet Sulfamethoxazole/Trimethoprim [Bactrim DS TAB] 1 each PO BID #14 tablet Referrals: PRIMARY CARE, [Primary Care Provider] - 3-[address] [facility] [place] [Outside] - 3-5 Days [facility] [Outside] - [facility] - 3-5 Days [facility] [Outside] - 3-5 Days Forms: Work/School Release Form(ED) Time of Disposition: 10:13
== END 2017-05-27 10:34 | disposition home or self-care (01) ==
LOC: ED 08:01
DX: S93.401A Sprain of unspecified ligament of right ankle, initial encounter (principal); W10.9XXA Fall (on) (from) unspecified stairs and steps, initial encounter; Y93.89 Activity, other specified; Y92.89 Other specified places as the place of occurrence of the external cause; Y99.8 Other external cause status
CPT/HCPCS: 99283

== ENCOUNTER 2017-08-16 17:26 | Emergency (ER) | payer SELFPAY ==
[2017-08-16 19:02] LABS: Basophils # (Auto) 0.1 K/mm3 (0.0-0.1); Basophils % (Auto) 0.3 % (0.0-1.8); Eosinophils # (Auto) 0.1 K/mm3 (0.0-0.4); Eosinophils % (Auto) 0.4 % (0.0-4.3); Hematocrit 35.9 % (30.3-42.9); Hemoglobin 11.3 gm/dl (10.1-14.3); Lymphocytes % (Auto) 10.2 % (13.4-35.0); Mean Corpuscular HGB Conc 32 % (30-34); Mean Corpuscular Hemoglobin 29 pg (28-32); Mean Corpuscular Volume 92 fl (79-97); Monocytes % (Auto) 5.2 % (0.0-7.3); Platelet Count 333 K/mm3 (140-440); Red Blood Count 3.92 M/mm3 (3.65-5.03); Red Cell Distribution Width 13.3 % (13.2-15.2)
[2017-08-16 19:17] LABS: Alanine Aminotransferase 13 units/L (7-56); Albumin 3.8 g/dL (3.9-5); BUN/Creatinine Ratio 6; Blood Urea Nitrogen 4 mg/dL (7-17); Calcium 8.9 mg/dL (8.4-10.2); Hemolysis Index 5; Lipase 15 units/L (13-60)
[2017-08-16 21:54] LABS: Bacteria,Urine 1+ /HPF (Negative); Bilirubin,Urine NEG (Negative); Blood,Urine LG (Negative); Color,Urine Yellow (Yellow); Mucus,Urine FEW /HPF; Protein,Urine <15 mg/dL mg/dL (Negative); Urobilinogen,Urine < 2.0 mg/dL (<2.0)
[2017-08-17] MEDS ORDERED: XOPENEX IH ONE (03:06)
[2017-08-17 03:11] VITALS: BP 117/75
--- NOTE | 2017-08-17 03:25 | Emergency Department Report ---
HPI - General Chief Complaint: Pain General Time Seen by Provider: 08/17/17 02:49 - HPI HPI: Room 1 (1 of 3) The patient is a 22-year-old female presenting with 2 other family members with a chief complaint of cough and rhinorrhea and myalgias. The patient states for the past 7 days she's had body aches headache, cough is productive of yellowish- green sputum this to feeling dizzy and fatigued. Patient states she also has pain when she coughs. Patient admits to fever of 101.9 F. Patient denies sore throat. Patient states she's had 2 episodes of vomiting yesterday. The other 2 found members have similar symptoms Location: [See above] Duration: 7 days Quality: Myalgia, soreness Severity: Moderate Modifying factors: [see above] Context: [see above] Mode of transportation: [not driving] ED Past Medical Hx - Past Medical History Hx Asthma: Yes (CHILD) Additional medical history: Abscess. Obesity - Surgical History Past Surgical History?: No - Family History Family history: no significant - Social History Smoking Status: Never Smoker Substance Use Type: None, Alcohol (occasional) - Medications Home Medications: Home Medications Medication Instructions Recorded Confirmed Last Taken Type HYDROcodone/APAP 5-325 [[place] 1 each PO Q4HR PRN #12 tablet 09/25/16 Unknown Rx 5/325] Ibuprofen [Motrin] 600 mg PO Q8H PRN #15 tablet 09/27/16 Unknown Rx Ibuprofen [Motrin 600 MG tab] 600 mg PO Q8H PRN #30 tablet 02/19/17 Unknown Rx Cyclobenzaprine [Flexeril 10 MG 10 mg PO QHS #20 tablet 05/27/17 Unknown Rx TAB] Ibuprofen [Motrin 800 MG tab] 800 mg PO QHS #30 tablet 05/27/17 Unknown Rx Sulfamethoxazole/Trimethoprim 1 each PO BID #14 tablet 05/27/17 Unknown Rx [Bactrim DS TAB] ALBUTEROL Inhaler [Proair] 2 puff IH QID PRN #1 inhalation 08/17/17 Unknown Rx Amoxicillin 500 mg PO BID #14 capsule 08/17/17 Unknown Rx Cyclobenzaprine [Flexeril] 10 mg PO TID PRN #14 tablet 08/17/17 Unknown Rx Ibuprofen [Motrin] 800 mg PO Q8HR PRN #20 tablet 08/17/17 Unknown Rx Oseltamivir [Tamiflu] 75 mg PO BID #10 cap 08/17/17 Unknown Rx ED Review of Systems ROS: Stated complaint: FLU LIKE SYMPTOMS Other details as noted in HPI Constitutional: fever, malaise ENT: denies: throat pain Respiratory: cough, shortness of breath Gastrointestinal: nausea, vomiting, diarrhea Musculoskeletal: myalgia Neurological: other (dizziness) Physical Exam - Physical Exam Vital Signs: Vital Signs 08/16/17 08/17/17 08/17/17 18:32 03:10 03:11 Temperature 99.6 F 98.5 F Pulse Rate 119 H 101 H Respiratory 18 18 18 Rate Blood Pressure 129/81 Blood Pressure 117/75 [Left] O2 Sat by Pulse 100 98 98 Oximetry Physical Exam: GENERAL: The patient is well-developed well-nourished female lying on stretcher not appearing to be in acute distress. [] HEENT: Normocephalic. Atraumatic. Extraocular motions are intact. Patient has moist mucous membranes. NECK: Supple. No meningitic signs are noted. Trachea midline CHEST/LUNGS: Clear to auscultation. There is no respiratory distress noted. Frequent coughing when asked to breathe deeply HEART/CARDIOVASCULAR: Regular. There is no tachycardia. There is no gallop rub or murmur. ABDOMEN: Abdomen is soft, nontender. Patient has normal bowel sounds. There is no abdominal distention. SKIN: There is no rash. There is no edema. There is no diaphoresis. NEURO: The patient is awake, alert, and oriented. The patient is cooperative. The patient has no focal neurologic deficits. The patient has normal speech MUSCULOSKELETAL: There is no evidence of acute injury. ED Course Vital Signs 08/16/17 08/17/17 08/17/17 18:32 03:10 03:11 Temperature 99.6 F 98.5 F Pulse Rate 119 H 101 H Respiratory 18 18 18 Rate Blood Pressure 129/81 Blood Pressure 117/75 [Left] O2 Sat by Pulse 100 98 98 Oximetry ED Medical Decision Making - Lab Data Result diagrams: 08/16/17 18:47 08/16/17 18:47 Laboratory Tests 08/16/17 08/16/17 08/16/17 18:47 18:47 18:47 WBC 19.3 H RBC 3.92 Hgb 11.3 Hct 35.9 MCV 92 MCH 29 MCHC 32 RDW 13.3 Plt Count 333 Lymph % (Auto) 10.[address] [place] % (Auto) 5.2 Eos % (Auto) 0.4 Baso % (Auto) 0.3 Lymph # 2.0 [place] # 1.0 H Eos # 0.1 Baso # 0.1 Seg Neutrophils % 83.9 H Seg Neutrophils # 16.2 H Sodium 138 Potassium 3.7 Chloride 97.6 L Carbon Dioxide 23 Anion Gap 21 BUN 4 L Creatinine 0.7 Estimated GFR > 60 BUN/Creatinine Ratio 6 Glucose 99 Calcium 8.9 Total Bilirubin 0.60 AST 14 ALT 13 Alkaline Phosphatase 87 Total Protein 7.6 Albumin 3.8 L Albumin/Globulin Ratio 1.0 Lipase 15 HCG, Qual Negative Urine Color Urine Turbidity Urine pH Ur Specific [place] Urine Protein Urine Glucose (UA) Urine Ketones Urine Blood Urine Nitrite Urine Bilirubin Urine Urobilinogen Ur Leukocyte Esterase Urine WBC (Auto) Urine RBC (Auto) U Epithel Cells (Auto) Urine Bacteria (Auto) Urine Mucus 08/16/17 21:30 WBC RBC Hgb Hct MCV MCH MCHC RDW Plt Count Lymph % (Auto) [place] % (Auto) Eos % (Auto) Baso % (Auto) Lymph # [place] # Eos # Baso # Seg Neutrophils % Seg Neutrophils # Sodium Potassium Chloride Carbon Dioxide Anion Gap BUN Creatinine Estimated GFR BUN/Creatinine Ratio Glucose Calcium Total Bilirubin AST ALT Alkaline Phosphatase Total Protein Albumin Albumin/Globulin Ratio Lipase HCG, Qual Urine Color Yellow Urine Turbidity Clear Urine pH 6.0 Ur Specific [place]vin 1.013 Urine Protein <15 mg/dl Urine Glucose (UA) Neg Urine Ketones Tr Urine Blood Lg Urine Nitrite Neg Urine Bilirubin Neg Urine Urobilinogen < 2.0 Ur Leukocyte Esterase Sm Urine WBC (Auto) 6.0 Urine RBC (Auto) 3.0 U Epithel Cells (Auto) 6.0 Urine Bacteria (Auto) 1+ Urine Mucus Few - Radiology Data Radiology results: report reviewed (chest x-ray), image reviewed (chest x-ray) interpreted by me: Chest x-ray-no focal infiltrates, no pneumothorax - Differential Diagnosis influenza, viral URI, gastroenteritis Critical care attestation.: If time is entered above; I have spent that time in minutes in the direct care of this critically ill patient, excluding procedure time. ED Disposition Clinical Impression: Fever, Cough, Rhinorrhea, Diarrhea Disposition: DC-01 TO HOME OR SELFCARE Is pt being admited?: No Does the pt Need Aspirin: No Condition: Stable Instructions: Influenza (ED) Additional Instructions: Return to the emergency department immediately should you develop worsening symptoms, fever, inability to tolerate food or liquid or any other concerns. Prescriptions: ALBUTEROL Inhaler [Proair] 2 puff IH QID PRN #1 inhalation PRN Reason: Shortness Of Breath Amoxicillin 500 mg PO BID #14 capsule Cyclobenzaprine [Flexeril] 10 mg PO TID PRN #14 tablet PRN Reason: Muscle Spasm Ibuprofen [Motrin] 800 mg PO Q8HR PRN #20 tablet PRN Reason: Pain Oseltamivir [Tamiflu] 75 mg PO BID #10 cap Referrals: MARYLU MEYER MD [Primary Care Provider] - 3-5 Days Time of Disposition: 04:24
--- NOTE | 2017-08-17 04:16 | XRay Report ---
FINAL REPORT PROCEDURE: XR CHEST ROUTINE 2V TECHNIQUE: PA and lateral chest radiographs were obtained. CPT 16597 HISTORY: cough COMPARISON: No prior studies are available for comparison. FINDINGS: Heart: Normal. Mediastinum/Vessels: Normal. Lungs/Pleural space: Lungs are clear and expanded. There are no infiltrates, effusions or pneumothoraces.. Bony thorax: No acute osseous abnormality. Other: IMPRESSION: Normal examination.
[2017-08-17] MEDS ORDERED: MOTRIN PO ONE (05:07)
[2017-08-17] MEDS ORDERED: MOTRIN ONE (05:10)
== END 2017-08-17 05:15 | disposition home or self-care (01) ==
LOC: ED 17:26
DX: R50.9 Fever, unspecified (principal); R05 Cough; J34.89 Other specified disorders of nose and nasal sinuses; R19.7 Diarrhea, unspecified
CPT/HCPCS: 36415; 71046; 80053; 81001; 83690; 84703; 85025; 94640; 99284